=== PATIENT | female | born 1950 | race Caucasian/White ===

== ENCOUNTER 2020-08-31 10:01 | Outpatient (CLI) | payer MEDICARE | END 2020-08-31 23:59 | disposition home or self-care (01) | LOC: WOUND 10:01 | PROVIDERS: ATTEND Internal Medicine | DX: T22.322A Burn of third degree of left elbow, initial encounter (principal); T23.302A Burn of third degree of left hand, unspecified site, initial encounter; T23.332A Burn of third degree of multiple left fingers (nail), not including thumb, initial encounter; T23.331A Burn of third degree of multiple right fingers (nail), not including thumb, initial encounter; T23.301A Burn of third degree of right hand, unspecified site, initial encounter; T31.0 Burns involving less than 10% of body surface; T22.231A Burn of second degree of right upper arm, initial encounter; T22.212A Burn of second degree of left forearm, initial encounter; E66.01 Morbid (severe) obesity due to excess calories; I10 Essential (primary) hypertension; M79.7 Fibromyalgia; M19.90 Unspecified osteoarthritis, unspecified site; F41.9 Anxiety disorder, unspecified; F31.9 Bipolar disorder, unspecified; X08.8XXA Exposure to other specified smoke, fire and flames, initial encounter; Y93.89 Activity, other specified; Y92.89 Other specified places as the place of occurrence of the external cause; Y99.8 Other external cause status | CPT/HCPCS: 16020; 97597 ==

== ENCOUNTER 2020-09-07 10:01 | Outpatient (CLI) | payer MEDICARE | END 2020-09-07 23:59 | disposition home or self-care (01) | LOC: WOUND 10:01 | PROVIDERS: ATTEND Internal Medicine Cardiovascular Disease | DX: T22.322 Burn of third degree of left elbow (principal); T23.302D Burn of third degree of left hand, unspecified site, subsequent encounter; T23.332D Burn of third degree of multiple left fingers (nail), not including thumb, subsequent encounter; T23.331D Burn of third degree of multiple right fingers (nail), not including thumb, subsequent encounter; T23.301D Burn of third degree of right hand, unspecified site, subsequent encounter; T31.0 Burns involving less than 10% of body surface; T22.231D Burn of second degree of right upper arm, subsequent encounter; T22.212D Burn of second degree of left forearm, subsequent encounter; E66.01 Morbid (severe) obesity due to excess calories; I10 Essential (primary) hypertension; M79.7 Fibromyalgia; M19.90 Unspecified osteoarthritis, unspecified site; F41.9 Anxiety disorder, unspecified; F31.9 Bipolar disorder, unspecified; X08.8XXD Exposure to other specified smoke, fire and flames, subsequent encounter | CPT/HCPCS: G0463 ==

== ENCOUNTER → 2020-09-17 | Outpatient (CLI) | payer MEDICARE | END | disposition home or self-care (01) | LOC: WOUND 09:52 | PROVIDERS: ATTEND Internal Medicine | DX: T22.322 Burn of third degree of left elbow (principal); T23.302D Burn of third degree of left hand, unspecified site, subsequent encounter; T23.332D Burn of third degree of multiple left fingers (nail), not including thumb, subsequent encounter; T23.331D Burn of third degree of multiple right fingers (nail), not including thumb, subsequent encounter; T23.301D Burn of third degree of right hand, unspecified site, subsequent encounter; T22.231D Burn of second degree of right upper arm, subsequent encounter; T22.212D Burn of second degree of left forearm, subsequent encounter; T31.0 Burns involving less than 10% of body surface; E11.628 Type 2 diabetes mellitus with other skin complications; I10 Essential (primary) hypertension; M79.7 Fibromyalgia; M19.90 Unspecified osteoarthritis, unspecified site; F41.9 Anxiety disorder, unspecified; F31.9 Bipolar disorder, unspecified; E66.01 Morbid (severe) obesity due to excess calories; Z68.26 Body mass index [BMI] 26.0-26.9, adult; X08.8XXD Exposure to other specified smoke, fire and flames, subsequent encounter | CPT/HCPCS: 16020; 97597 ==

== ENCOUNTER 2020-09-24 10:01 | Outpatient (CLI) | payer MEDICARE | END 2020-09-24 23:59 | disposition home or self-care (01) | LOC: WOUND 10:01 | PROVIDERS: ATTEND Internal Medicine | DX: T22.322 Burn of third degree of left elbow (principal); T23.302D Burn of third degree of left hand, unspecified site, subsequent encounter; T23.332D Burn of third degree of multiple left fingers (nail), not including thumb, subsequent encounter; T23.331D Burn of third degree of multiple right fingers (nail), not including thumb, subsequent encounter; T23.301D Burn of third degree of right hand, unspecified site, subsequent encounter; T22.231D Burn of second degree of right upper arm, subsequent encounter; T22.212D Burn of second degree of left forearm, subsequent encounter; T31.0 Burns involving less than 10% of body surface; E11.628 Type 2 diabetes mellitus with other skin complications; I10 Essential (primary) hypertension; M79.7 Fibromyalgia; M19.90 Unspecified osteoarthritis, unspecified site; F41.9 Anxiety disorder, unspecified; F31.9 Bipolar disorder, unspecified; E66.01 Morbid (severe) obesity due to excess calories; Z68.26 Body mass index [BMI] 26.0-26.9, adult; X08.8XXD Exposure to other specified smoke, fire and flames, subsequent encounter | CPT/HCPCS: 16020; 97597 ==

== ENCOUNTER 2020-10-01 10:07 | Outpatient (CLI) | payer MEDICARE | END 2020-10-01 23:59 | disposition home or self-care (01) | LOC: WOUND 10:07 | PROVIDERS: ATTEND Internal Medicine | DX: T23.322D Burn of third degree of single left finger (nail) except thumb, subsequent encounter (principal); T23.322A Burn of third degree of single left finger (nail) except thumb, initial encounter; T22.231D Burn of second degree of right upper arm, subsequent encounter; T22.212D Burn of second degree of left forearm, subsequent encounter; T31.0 Burns involving less than 10% of body surface; E11.628 Type 2 diabetes mellitus with other skin complications; I10 Essential (primary) hypertension; M79.7 Fibromyalgia; M19.90 Unspecified osteoarthritis, unspecified site; F41.9 Anxiety disorder, unspecified; F31.9 Bipolar disorder, unspecified; E78.2 Mixed hyperlipidemia; E66.01 Morbid (severe) obesity due to excess calories; Z68.26 Body mass index [BMI] 26.0-26.9, adult; X08.8XXA Exposure to other specified smoke, fire and flames, initial encounter; X08.8XXD Exposure to other specified smoke, fire and flames, subsequent encounter; Y93.89 Activity, other specified; Y92.89 Other specified places as the place of occurrence of the external cause; Y99.8 Other external cause status | CPT/HCPCS: 16020; 97597 ==

== ENCOUNTER 2020-10-15 10:50 | Outpatient (CLI) | payer MEDICARE | END 2020-10-15 23:59 | disposition home or self-care (01) | LOC: WOUND 10:50 | PROVIDERS: ATTEND Internal Medicine | DX: T23.332D Burn of third degree of multiple left fingers (nail), not including thumb, subsequent encounter (principal); T22.231D Burn of second degree of right upper arm, subsequent encounter; T22.212D Burn of second degree of left forearm, subsequent encounter; T31.0 Burns involving less than 10% of body surface; E11.628 Type 2 diabetes mellitus with other skin complications; I10 Essential (primary) hypertension; M79.7 Fibromyalgia; M19.90 Unspecified osteoarthritis, unspecified site; F41.9 Anxiety disorder, unspecified; F31.9 Bipolar disorder, unspecified; E78.2 Mixed hyperlipidemia; E66.01 Morbid (severe) obesity due to excess calories; Z68.26 Body mass index [BMI] 26.0-26.9, adult; Z88.0 Allergy status to penicillin; Z88.2 Allergy status to sulfonamides; X08.8XXD Exposure to other specified smoke, fire and flames, subsequent encounter | CPT/HCPCS: 16020; 97597 ==

== ENCOUNTER 2021-03-30 04:32 | Emergency (ER) | payer MEDICARE ==
[~2021-03-30] VITALS: Ht 167.6 cm; Wt 72.0 kg
--- NOTE | 2021-03-30 07:20 | NUR ---
Second set of vitals charted at this time.
--- NOTE | 2021-03-30 07:50 | NUR ---
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
[2021-03-30 08:37] LABS: ALANINE AMINOTRANSFERASE 19 U/L (12-78); ALBUMIN 3.8 g/dL (3.4-5.0); ANION GAP 11 mmol/L (5-15); CHLORIDE 99 mmol/L (98-107); CREATININE 1.21 mg/dL (0.55-1.02)
[2021-03-30 08:39] LABS: ALKALINE PHOSPHATASE 138 U/L (45-117); BILIRUBIN,TOTAL 1.3 mg/dL (0.2-1.0); TOTAL PROTEIN 7.8 g/dL (6.4-8.2)
[2021-03-30 08:46] LABS: BASOPHILS % (AUTO) 1 % (0-1); EOSINOPHILS % (AUTO) 1 % (1-7); LYMPHOCYTES % (AUTO) 21 % (22-44); MEAN CORPUSCULAR HEMOGLOBIN 31.3 pg (27.0-34.8); MEAN CORPUSCULAR HGB CONC 34.2 g/dL (32.4-35.8); MEAN PLATELET VOLUME 7.1 fL (7.4-10.4); MONOCYTES % (AUTO) 8 % (2-9); NEUTROPHILS % (AUTO) 70 % (42-75); PLATELET COUNT 312 x10^3/uL (130-400); RED BLOOD COUNT 4.92 x10^6/uL (3.82-5.3)
--- NOTE | 2021-03-30 08:48 | NUR ---
pt presents to ED with c/o lesions covering bilateral arms, states she believes it is a bug or parasite. pt states "they weren't here before yesterday." pt is a&o, resps even and unlabored. bp and spo2 monitors in place .call light in reach. awaiting lab and imaging results.
--- NOTE | 2021-03-30 09:04 | NUR ---
POTASSIUM 2.9, FELT HAT MELLOWING MACHINE OPERATOR APPLIED. NSR ON FELT HAT MELLOWING MACHINE OPERATOR RATE 80'S WITH NO ECTOPY. MD NOTIFIED.
--- NOTE | 2021-03-30 09:09 | NUR ---
JESSICA ALONSO AT BEDSIDE FOR INITIAL ASSESSMENT.
[2021-03-30] MEDS ORDERED: POTASSIUM CHLORIDE 20 MEQ TAB.ER.PRT PO ONE (09:30)
[2021-03-30] MEDS ORDERED: POTASSIUM CHLORIDE 20 MEQ TAB.ER.PRT ONE (09:56)
--- NOTE | 2021-03-30 10:30 | NUR ---
PT SLEEPING ON GURNEY, RESPS EVEN AND UNLABORED, NADN. PT AWAITING PSYCH CONSULT AND DISPO.
--- NOTE | 2021-03-30 11:30 | NUR ---
PT SLEEPING ON GURNEY, RESPS EVEN AND UNLABORED, NADN. AWAITING PSYCH CONSULT AND DISPO.
--- NOTE | 2021-03-30 13:46 | NUR ---
request received from samantha steele to complete med rec. pt unable to recall meds, pt's pharmacy ([facility]) called [phone], call goes through but gets sent to [facility] when connecting to pharmacy staff. samantha steele notified
[2021-03-30] MEDS ORDERED: TRAZ-175 PO (14:03)
[2021-03-30] MEDS ORDERED: SIMV20TA19 PO (14:03)
[2021-03-30] MEDS ORDERED: HYDR50CA2 PO (14:03)
[2021-03-30] MEDS ORDERED: HYDR-3241 PO (14:03)
[2021-03-30] MEDS ORDERED: lisinopril PO (14:03)
[2021-03-30] MEDS ORDERED: FLUO20CA23 PO (14:03)
[2021-03-30] MEDS ORDERED: CYCL5TAB PO (14:03)
[2021-03-30] MEDS ORDERED: DEXT5TAB17 PO (14:03)
[2021-03-30] MEDS ORDERED: PROP20TA PO (14:03)
[2021-03-30] MEDS ORDERED: celebrex PO (14:03)
[2021-03-30] MEDS ORDERED: LAMO200T6 PO (14:03)
--- NOTE | 2021-03-30 14:45 | NUR ---
samantha steele at bedside to update pt and with poc. order for respiridal ordered, med not in ed [facility], requested from pharmacy. pt a&o, resps even and unlabored. wound care complete to bilateral arms, bandaging in place cdi. pt to be medicated then dc'd.
[2021-03-30] MEDS ORDERED: RISPERIDONE 0.5 MG TABLET PO ONE (15:00)
[2021-03-30 15:15] VITALS: BP 96/59
--- NOTE | 2021-03-30 15:42 | NUR ---
pt given diet tray, given dc instructions and script , educated regarding rx for risperidal and keflex. pt a&o, resps even and unlabored. pt ambulatory to dc desk with steady gait, all questions answered. with pt at dc.
== END 2021-03-30 15:43 | disposition home or self-care (01) ==
LOC: ED 09:29
DX: Z48.01 Encounter for change or removal of surgical wound dressing (principal); R06.02 Shortness of breath
CPT/HCPCS: 36415; 71046; 80053; 85025; 99285

== ENCOUNTER 2021-04-06 16:49 | Inpatient (IN) | payer MEDICARE ==
[~2021-04-06] VITALS: Ht 167.6 cm; Wt 75.2 kg
[~2021-04-06 16:49] MED LIST: CYCL5TAB PO; DEXT5TAB17 PO; FLUO20CA23 PO; HYDR-3241 PO; HYDR50CA2 PO; LAMO200T6 PO; PROP20TA PO; SIMV20TA19 PO; TRAZ-175 PO; celebrex PO; lisinopril PO
--- NOTE | 2021-04-06 17:15 | NUR ---
BP CUFF, PULSE OX IN PLACE. PT OBSERVED PICKING AT WOUNDS ON ARMS, STATES SHE HAS HAD WOUNDS FOR AWHILE AND HAS BEEN SEEN HERE PREVIOUSLY AND SENT HOME. EKG COMPLETED ON ARRIVAL, CALL LIGHT WITHIN REACH.
[2021-04-06] MEDS ORDERED: SODIUM CHLORIDE 0.9% 1,000ML IVBOLUS ONE (17:30)
[2021-04-06] MEDS ORDERED: SODIUM CHLORIDE FLUSH 10ML SYR IVF ONE (17:30)
[2021-04-06] MEDS ORDERED: CEFAZOLIN PMX 1GM/50ML 50 ML IV ONE (17:30)
[2021-04-06 18:00] LABS: BASOPHILS % (AUTO) 0 % (0-1); EOSINOPHILS % (AUTO) 0 % (1-7); LYMPHOCYTES % (AUTO) 8 % (22-44); MEAN CORPUSCULAR HEMOGLOBIN 30.7 pg (27.0-34.8); MEAN CORPUSCULAR HGB CONC 33.3 g/dL (32.4-35.8); MEAN PLATELET VOLUME 6.7 fL (7.4-10.4); MONOCYTES % (AUTO) 6 % (2-9); NEUTROPHILS % (AUTO) 85 % (42-75); PLATELET COUNT 293 x10^3/uL (130-400); RED BLOOD COUNT 4.38 x10^6/uL (3.82-5.3); RED CELL DISTRIBUTION WIDTH 13.8 % (9.6-15.2)
[2021-04-06 18:06] LABS: ALANINE AMINOTRANSFERASE 16 U/L (12-78); ALBUMIN 2.8 g/dL (3.4-5.0); ANION GAP 10 mmol/L (5-15); CALCIUM 9.3 mg/dL (8.5-10.1); CHLORIDE 103 mmol/L (98-107); CREATININE 0.92 mg/dL (0.55-1.02)
[2021-04-06 18:15] LABS: ALKALINE PHOSPHATASE 121 U/L (45-117); BILIRUBIN,TOTAL 0.6 mg/dL (0.2-1.0); TOTAL PROTEIN 6.8 g/dL (6.4-8.2)
--- NOTE | 2021-04-06 18:49 | NUR ---
REPORT RECIEVED FROM TYLER TREJO
[2021-04-06] MEDS ORDERED: CEFAZOLIN PMX 1GM/50ML 50 ML ONE (18:51)
[2021-04-06] MEDS ORDERED: LACTATED RINGERS 1,000 ML IV ONE (19:00)
--- NOTE | 2021-04-06 19:10 | NUR ---
REPORT TO JADON RN, TRANSFER OF CARE AT THIS TIME.
[2021-04-06] MEDS ORDERED: LABETALOL 5MG/ML, 20ML IVPush PRN (20:00)
[2021-04-06] MEDS ORDERED: POLYETHYLENE GLYCOL 17 GM PACKET PO PRN (20:00)
[2021-04-06] MEDS ORDERED: ONDANSETRON 2MG/ML, 2ML IVPush PRN (20:00)
[2021-04-06 21:40] VITALS: BP 92/61
[2021-04-06 21:41] VITALS: BP 104/61
[2021-04-06 21:42] VITALS: BP 96/58
[2021-04-06] MEDS ORDERED: GABA600T7 PO (22:07)
[2021-04-06] MEDS: LACTATED RINGERS 1,000 ML IV SCH (23:34)
[2021-04-06] MEDS: ENOXAPARIN 40 MG/0.4 ML SQ SCH (23:34)
[2021-04-06] MEDS: ACETAMINOPHEN 325 MG TABLET PO PRN (23:35)
[2021-04-07 00:23] VITALS: BP 102/71
[2021-04-07] MEDS ORDERED: CEFAZOLIN 1,000 MG IM SCH (02:00)
[2021-04-07 03:06] LABS: MICROSCOPIC AUTO
[2021-04-07 05:14] LABS: BASOPHILS % (AUTO) 1 % (0-1); EOSINOPHILS % (AUTO) 2 % (1-7); LYMPHOCYTES % (AUTO) 27 % (22-44); MEAN CORPUSCULAR HEMOGLOBIN 31.1 pg (27.0-34.8); MEAN CORPUSCULAR HGB CONC 33.9 g/dL (32.4-35.8); MEAN PLATELET VOLUME 6.6 fL (7.4-10.4); MONOCYTES % (AUTO) 10 % (2-9); NEUTROPHILS % (AUTO) 61 % (42-75); PLATELET COUNT 263 x10^3/uL (130-400); RED BLOOD COUNT 3.65 x10^6/uL (3.82-5.3); RED CELL DISTRIBUTION WIDTH 13.6 % (9.6-15.2)
[2021-04-07 05:16] LABS: ANION GAP 6 mmol/L (5-15); CALCIUM 8.7 mg/dL (8.5-10.1); CHLORIDE 110 mmol/L (98-107); CREATININE 0.86 mg/dL (0.55-1.02)
[2021-04-07] MEDS: LACTATED RINGERS 1,000 ML IV SCH ×3 (06:24→16:11)
[2021-04-07 07:07] VITALS: BP 92/59
[2021-04-07] MEDS ORDERED: CEFAZOLIN 2,000 MG in SODIUM CHLORIDE 0.9% 50 ML IV SCH (08:30)
[2021-04-07] MEDS: HYDROcodone/APAP 5/325 TABLET PO PRN ×3 (09:32→18:04)
[2021-04-07] MEDS: CEFTRIAXONE 1,000 MG in DEXTROSE 5% 50 ML IVPB SCH (09:32)
[2021-04-07 14:30] VITALS: BP 117/74
[2021-04-07 14:32] VITALS: BP 128/79
[2021-04-07 14:34] VITALS: BP 137/82
[2021-04-07 19:10] VITALS: BP 102/67
[2021-04-07] MEDS: ENOXAPARIN 40 MG/0.4 ML SQ SCH (22:00)
[2021-04-08 00:37] VITALS: BP 110/68
[2021-04-08] MEDS: HYDROcodone/APAP 5/325 TABLET PO PRN ×3 (02:02→18:00)
[2021-04-08 06:30] LABS: BASOPHILS % (AUTO) 1 % (0-1); EOSINOPHILS % (AUTO) 2 % (1-7); LYMPHOCYTES % (AUTO) 27 % (22-44); MEAN CORPUSCULAR HEMOGLOBIN 31.4 pg (27.0-34.8); MEAN CORPUSCULAR HGB CONC 33.9 g/dL (32.4-35.8); MEAN PLATELET VOLUME 6.8 fL (7.4-10.4); MONOCYTES % (AUTO) 9 % (2-9); NEUTROPHILS % (AUTO) 62 % (42-75); PLATELET COUNT 187 x10^3/uL (130-400); RED BLOOD COUNT 3.74 x10^6/uL (3.82-5.3); RED CELL DISTRIBUTION WIDTH 13.7 % (9.6-15.2)
[2021-04-08 06:34] VITALS: BP 109/73
[2021-04-08 06:43] LABS: ANION GAP 7 mmol/L (5-15); CALCIUM 9.2 mg/dL (8.5-10.1); CHLORIDE 110 mmol/L (98-107); CREATININE 0.58 mg/dL (0.55-1.02)
[2021-04-08] MEDS: CEFTRIAXONE 1,000 MG in DEXTROSE 5% 50 ML IVPB SCH (10:34)
[2021-04-08 12:17] VITALS: BP 123/82
[2021-04-08] MEDS: RIVAROXABAN 15 MG TABLET PO SCH (18:00)
[2021-04-08] MEDS: hydrOXyzine 10 MG/5 ML ORAL SOL PO PRN (18:01)
[2021-04-08 18:59] VITALS: BP 113/70
[2021-04-08] MEDS ORDERED: TRAZODONE 100MG TABLET PO PRN (21:00)
[2021-04-08] MEDS: RISPERIDONE 0.5 MG TABLET PO SCH (21:17)
[2021-04-08] MEDS: MELATONIN 5 MG TABLET PO PRN (21:18)
[2021-04-09 02:32] VITALS: BP 130/83
[2021-04-09] MEDS: RIVAROXABAN 15 MG TABLET PO SCH ×2 (08:10→18:10)
[2021-04-09] MEDS: CEFTRIAXONE 1,000 MG in DEXTROSE 5% 50 ML IVPB SCH (08:12)
[2021-04-09] MEDS: FLUOXETINE HCL 20 MG CAPSULE PO SCH (08:12)
[2021-04-09] MEDS: RISPERIDONE 0.5 MG TABLET PO SCH ×2 (08:12→22:01)
[2021-04-09] MEDS: HYDROcodone/APAP 5/325 TABLET PO PRN ×2 (11:01→18:10)
[2021-04-09 14:00] VITALS: BP 117/71
[2021-04-09] MEDS: ACETAMINOPHEN 325 MG TABLET PO PRN (15:29)
[2021-04-09 18:39] VITALS: BP 123/80
[2021-04-09] MEDS: CEFDINIR 300 MG CAPSULE PO SCH (22:01)
[2021-04-10 02:59] VITALS: BP 110/67
[2021-04-10 05:07] VITALS: BP 124/83
[2021-04-10] MEDS ORDERED: HALOPERIDOL 5 MG/ML IM ONE (06:00)
[2021-04-10 07:46] VITALS: BP 142/89
[2021-04-10 09:15] LABS: ANION GAP 11 mmol/L (5-15); CALCIUM 9.2 mg/dL (8.5-10.1); CHLORIDE 107 mmol/L (98-107)
[2021-04-10] MEDS: CEFDINIR 300 MG CAPSULE PO SCH ×2 (10:51→21:48)
[2021-04-10] MEDS: FLUOXETINE HCL 20 MG CAPSULE PO SCH (10:51)
[2021-04-10] MEDS: RISPERIDONE 0.5 MG TABLET PO SCH ×2 (10:51→21:48)
[2021-04-10] MEDS: RIVAROXABAN 15 MG TABLET PO SCH ×2 (10:51→17:45)
[2021-04-10 12:54] VITALS: BP 142/79
[2021-04-10] MEDS: hydrOXyzine 10 MG/5 ML ORAL SOL PO PRN (17:45)
[2021-04-10 18:58] VITALS: BP 136/81
[2021-04-10] MEDS ORDERED: HYDROXYZINE PAMOATE 50MG CAP PO PRN (19:30)
[2021-04-10] MEDS ORDERED: TRAZODONE 100MG TABLET PO SCH (21:00)
[2021-04-10] MEDS: GABAPENTIN 300 MG CAPSULE PO SCH (21:48)
[2021-04-10] MEDS: MELATONIN 5 MG TABLET PO PRN (21:49)
[2021-04-11 02:20] VITALS: BP 129/74
[2021-04-11 06:37] VITALS: BP 122/78
[2021-04-11 07:45] LABS: BASOPHILS % (AUTO) 0 % (0-1); EOSINOPHILS % (AUTO) 2 % (1-7); LYMPHOCYTES % (AUTO) 19 % (22-44); MEAN CORPUSCULAR HEMOGLOBIN 31.7 pg (27.0-34.8); MEAN PLATELET VOLUME 6.7 fL (7.4-10.4); MONOCYTES % (AUTO) 10 % (2-9); NEUTROPHILS % (AUTO) 70 % (42-75); PLATELET COUNT 196 x10^3/uL (130-400); RED BLOOD COUNT 3.78 x10^6/uL (3.82-5.3); RED CELL DISTRIBUTION WIDTH 13.6 % (9.6-15.2)
[2021-04-11 07:49] LABS: ANION GAP 7 mmol/L (5-15); CHLORIDE 108 mmol/L (98-107)
[2021-04-11 07:52] LABS: CREATININE 0.52 mg/dL (0.55-1.02)
[2021-04-11] MEDS: CEFDINIR 300 MG CAPSULE PO SCH (08:22)
[2021-04-11] MEDS: FLUOXETINE HCL 20 MG CAPSULE PO SCH (08:22)
[2021-04-11] MEDS: RISPERIDONE 0.5 MG TABLET PO SCH (08:22)
[2021-04-11] MEDS: GABAPENTIN 300 MG CAPSULE PO SCH ×2 (08:22→16:57)
[2021-04-11] MEDS: RIVAROXABAN 15 MG TABLET PO SCH ×2 (08:22→16:57)
[2021-04-11] MEDS ORDERED: MAGNESIUM SULFATE 4 GM in SODIUM CHLORIDE 0.9% 100 ML IV ONE (09:00)
[2021-04-11 12:41] VITALS: BP 99/68
[2021-04-11 13:40] LABS: ANION GAP 11 mmol/L (5-15); CALCIUM 9.9 mg/dL (8.5-10.1); CHLORIDE 105 mmol/L (98-107); CREATININE 0.76 mg/dL (0.55-1.02)
[2021-04-11 14:14] VITALS: BP 121/81
[2021-04-11] MEDS: HYDROcodone/APAP 5/325 TABLET PO PRN (14:15)
[2021-04-11] MEDS ORDERED: TRAZ-175 PO (16:03)
[2021-04-11] MEDS ORDERED: RIVA15TA PO (16:03)
[2021-04-11] MEDS ORDERED: RISP0.5T62 PO (16:03)
[2021-04-11] MEDS ORDERED: CEFD300C37 PO (16:03)
[2021-04-11] MEDS ORDERED: RIVA20TA PO (16:03)
[2021-04-11] MEDS ORDERED: APIX5TAB PO (16:18)
[2021-04-30] MEDS ORDERED: RIVAROXABAN 20 MG TABLET PO SCH (17:00)
== END 2021-04-11 18:42 | disposition home health service (06) | DRG 871 ==
LOC: ED 17:15 → EDIP 20:54 → 4EST 21:15 → 4WST 23:45
PROVIDERS: ADMIT Internal Medicine; ATTEND Internal Medicine
DX: A41.9 Sepsis, unspecified organism (principal); J18.9 Pneumonia, unspecified organism; G93.41 Metabolic encephalopathy; L03.114 Cellulitis of left upper limb; E87.1 Hypo-osmolality and hyponatremia; L03.113 Cellulitis of right upper limb; J98.11 Atelectasis; I82.439 Acute embolism and thrombosis of unspecified popliteal vein; I82.411 Acute embolism and thrombosis of right femoral vein; I95.9 Hypotension, unspecified; M79.7 Fibromyalgia; L29.9 Pruritus, unspecified; G30.9 Alzheimer's disease, unspecified; F42.4 Excoriation (skin-picking) disorder; F41.9 Anxiety disorder, unspecified; F32.9 Major depressive disorder, single episode, unspecified; F19.10 Other psychoactive substance abuse, uncomplicated; F02.80 Dementia in other diseases classified elsewhere, unspecified severity, without behavioral disturbance, psychotic disturbance, mood disturbance, and anxiety; E87.6 Hypokalemia; D63.8 Anemia in other chronic diseases classified elsewhere; E11.9 Type 2 diabetes mellitus without complications; E83.42 Hypomagnesemia; G40.909 Epilepsy, unspecified, not intractable, without status epilepticus; I10 Essential (primary) hypertension; Z98.84 Bariatric surgery status; Z91.410 Personal history of adult physical and sexual abuse; Z86.718 Personal history of other venous thrombosis and embolism; Z78.1 Physical restraint status; Z82.3 Family history of stroke
CPT/HCPCS: 36415; 71045; 80048; 80053; 81001; 82962; 83036; 83605; 83735; 84100; 84443; 85025; 87040; 87070; 87086; 87205; 93005; 99285; G0378; J0690; J0696; J1650; J2405; J3475; J1630; J7030; J7120; Q0177

== ENCOUNTER 2021-04-28 16:12 | Inpatient (IN) | payer MEDICARE ==
[~2021-04-28] VITALS: Ht 167.6 cm; Wt 82.5 kg
[~2021-04-28 16:12] MED LIST changes: +APIX5TAB PO; +CEFD300C37 PO; +GABA600T7 PO; +RISP0.5T62 PO; +RIVA15TA PO; +RIVA20TA PO
[2021-04-28 17:15] LABS: BASOPHILS % (AUTO) 1 % (0-1); EOSINOPHILS % (AUTO) 0 % (1-7); LYMPHOCYTES % (AUTO) 11 % (22-44); MEAN CORPUSCULAR HEMOGLOBIN 32.2 pg (27.0-34.8); MEAN CORPUSCULAR HGB CONC 34.3 g/dL (32.4-35.8); MEAN PLATELET VOLUME 7.3 fL (7.4-10.4); MONOCYTES % (AUTO) 8 % (2-9); NEUTROPHILS % (AUTO) 81 % (42-75); PLATELET COUNT 301 x10^3/uL (130-400); RED BLOOD COUNT 4.31 x10^6/uL (3.82-5.3)
--- NOTE | 2021-04-28 17:15 | NUR ---
ERMD AT BEDSIDE FOR ASSESSEMNT. PT A&OX4, ABLE TO ANSWER ALL QUESTIONS, MAINTAINING OWN AIRWAY WELL.
[2021-04-28 17:17] LABS: ALANINE AMINOTRANSFERASE 22 U/L (12-78); ALBUMIN 2.9 g/dL (3.4-5.0); ANION GAP 10 mmol/L (5-15); CALCIUM 9.2 mg/dL (8.5-10.1); CHLORIDE 97 mmol/L (98-107)
[2021-04-28 17:19] LABS: ALKALINE PHOSPHATASE 99 U/L (45-117); BILIRUBIN,TOTAL 0.8 mg/dL (0.2-1.0); CREATININE 1.05 mg/dL (0.55-1.02); SALICYLATE LEVEL 2.8 mg/dL (2.8-20.0); TOTAL PROTEIN 7.1 g/dL (6.4-8.2)
[2021-04-28 17:25] LABS: INTERNATIONAL NORMALIZED RATIO 1.54 (0.93-1.1); PROTHROMBIN TIME 16.1 Seconds (9.6-11.5)
--- NOTE | 2021-04-28 18:09 | NUR ---
PT UP TO RR, HAT PLACED IN TOILET FOR U/A, PT MISSED FOR U/A SAMPLE, ERMD AWARE. IV STARTED PER ORDERS, PT PLACED ON MONITORS. PT'S REMAINS AT BEDSIDE. WILL FOLLOW ORDERS.
--- NOTE | 2021-04-28 18:12 | NUR ---
PT TO CT.
--- NOTE | 2021-04-28 18:31 | NUR ---
PT UA COLLECTED, SENT TO LAB. PT REMAINS ON MONITORS, VSS. AT BEDSIDE, CONT TO MONITOR.
[2021-04-28 18:49] LABS: MICROSCOPIC INDICATED
[2021-04-28 18:59] LABS: AMPHETAMINE SCREEN, URINE Negative (Negative); BARBITURATE SCREEN, URINE Negative (Negative); BENZODIAZEPINE SCREEN, URINE Negative (Negative); CANNABINOID SCREEN, URINE Negative (Negative); COCAINE SCREEN, URINE Negative (Negative); METHADONE SCREEN, URINE Negative (Negative); OPIATE SCREEN, URINE Positive (Negative)
--- NOTE | 2021-04-28 19:02 | NUR ---
REPORT TO JONNIE TREJO.
--- NOTE | 2021-04-28 19:02 | NUR ---
Report received and care turned over to meal break RN.
--- NOTE | 2021-04-28 19:30 | NUR ---
BREAK RN. PT GIVEN WATER PER REQUEST
--- NOTE | 2021-04-28 19:35 | NUR ---
Care assumed. Pt awaiting social work consult.
--- NOTE | 2021-04-28 19:54 | NUR ---
Pt provided warm blankets. Awaiting MD to come speak with her about plan of care. States she feels fine and would like to go home. Also states that delinquency prevention social worker has been in already.
[2021-04-28] MEDS ORDERED: CEFTRIAXONE 1,000 MG in DEXTROSE 5% 50 ML IVPB ONE (20:00)
--- NOTE | 2021-04-28 20:03 | NUR ---
IV abx started at this time.
--- NOTE | 2021-04-28 20:47 | NUR ---
Pt aware of admission plan and has gone home. Small amount of IV abx still to infuse. ED diet tray to be ordered for pt c/o hunger now.
[2021-04-28] MEDS ORDERED: HYDROXYZINE PAMOATE 50MG CAP PO PRN (21:30)
[2021-04-28] MEDS ORDERED: ACETAMINOPHEN 325 MG TABLET PO PRN (21:30)
[2021-04-28] MEDS ORDERED: PROPRANOLOL 20 MG TABLET PO PRN (21:30)
[2021-04-28] MEDS ORDERED: POLYETHYLENE GLYCOL 17 GM PACKET PO PRN (21:30)
--- NOTE | 2021-04-28 21:55 | NUR ---
Pt assisted to BSC with sandwich obtained from [employer] cart for pt. Call light in reach for when she is done using the restroom.
[2021-04-28 21:59] LABS: ANION GAP 11 mmol/L (5-15); CALCIUM 9.4 mg/dL (8.5-10.1); CHLORIDE 97 mmol/L (98-107); CREATININE 0.86 mg/dL (0.55-1.02)
--- NOTE | 2021-04-28 22:06 | NUR ---
Report given to Paolo, RN's and care transferred. They are aware of pt still being on BSC and need for assistance back to bed with food at bedside for when she is done.
--- NOTE | 2021-04-28 22:22 | NUR ---
Report to Calixto TREJO
[2021-04-28 22:33] VITALS: BP 148/78
[2021-04-28] MEDS: TRAZODONE 100MG TABLET PO SCH (23:41)
[2021-04-28] MEDS: LAMOTRIGINE 200 MG TABLET PO SCH (23:41)
[2021-04-28] MEDS: RISPERIDONE 0.5 MG TABLET PO SCH (23:41)
[2021-04-28] MEDS: SIMVASTATIN 20 MG TABLET PO SCH (23:41)
[2021-04-29 02:20] VITALS: BP 94/60
[2021-04-29] MEDS ORDERED: POTASSIUM CHLORIDE 20 MEQ TAB.ER.PRT PO ONE (02:30)
[2021-04-29 06:37] LABS: CHLORIDE 100 mmol/L (98-107)
[2021-04-29 06:45] LABS: BASOPHILS % (AUTO) 1 % (0-1); EOSINOPHILS % (AUTO) 1 % (1-7); LYMPHOCYTES % (AUTO) 24 % (22-44); MEAN CORPUSCULAR HEMOGLOBIN 32.1 pg (27.0-34.8); MEAN CORPUSCULAR HGB CONC 34.2 g/dL (32.4-35.8); MEAN PLATELET VOLUME 7.7 fL (7.4-10.4); MONOCYTES % (AUTO) 11 % (2-9); NEUTROPHILS % (AUTO) 62 % (42-75); PLATELET COUNT 263 x10^3/uL (130-400); RED BLOOD COUNT 4.55 x10^6/uL (3.82-5.3); RED CELL DISTRIBUTION WIDTH 14.2 % (9.6-15.2)
[2021-04-29 06:46] LABS: ANION GAP 12 mmol/L (5-15); CALCIUM 9.8 mg/dL (8.5-10.1); CREATININE 1.01 mg/dL (0.55-1.02)
[2021-04-29] MEDS: SENNA/DOCUSATE TABLET PO SCH (09:00)
[2021-04-29 09:10] VITALS: BP 108/60
[2021-04-29] MEDS: GABAPENTIN 300 MG CAPSULE PO SCH ×3 (09:20→20:20)
[2021-04-29] MEDS: POTASSIUM CHLORIDE 20 MEQ TAB.ER.PRT PO SCH ×2 (09:21→15:50)
[2021-04-29] MEDS: RISPERIDONE 0.5 MG TABLET PO SCH ×2 (09:21→20:20)
[2021-04-29] MEDS: FLUOXETINE HCL 20 MG CAPSULE PO SCH (09:22)
[2021-04-29] MEDS: LAMOTRIGINE 200 MG TABLET PO SCH ×2 (09:22→20:20)
[2021-04-29] MEDS ORDERED: POTASSIUM CHLORIDE 40 MEQ in SODIUM CHLORIDE 0.9% 500 ML IV ONE (12:00)
[2021-04-29] MEDS: ONDANSETRON 2MG/ML, 2ML IVPush PRN (13:30)
[2021-04-29 14:11] VITALS: BP 93/46
[2021-04-29 18:57] VITALS: BP 87/59
[2021-04-29] MEDS: SIMVASTATIN 20 MG TABLET PO SCH (20:20)
[2021-04-29] MEDS: TRAZODONE 100MG TABLET PO SCH (20:20)
[2021-04-29] MEDS ORDERED: SODIUM CHLORIDE 0.9% 1,000ML IVBOLUS ONE (21:00)
[2021-04-29 23:32] VITALS: BP 78/42
[2021-04-30] MEDS: SODIUM CHLORIDE 0.9% 1,000 ML IV SCH ×4 (00:01→23:30)
[2021-04-30 00:43] VITALS: BP 82/54
[2021-04-30 01:40] VITALS: BP 81/53
[2021-04-30 03:10] LABS: ALANINE AMINOTRANSFERASE 12 U/L (12-78); ALBUMIN 2.1 g/dL (3.4-5.0); ANION GAP 5 mmol/L (5-15); CALCIUM 8.5 mg/dL (8.5-10.1); CHLORIDE 111 mmol/L (98-107); CREATININE 1.06 mg/dL (0.55-1.02)
[2021-04-30 03:12] LABS: ALKALINE PHOSPHATASE 67 U/L (45-117); BILIRUBIN,TOTAL 0.2 mg/dL (0.2-1.0)
[2021-04-30 06:04] VITALS: BP 78/43
[2021-04-30] MEDS ORDERED: ALBUMIN HUMAN 25% 100 ML IV ONE (08:00)
[2021-04-30 08:56] VITALS: BP 101/67
[2021-04-30] MEDS: SENNA/DOCUSATE TABLET PO SCH (09:00)
[2021-04-30] MEDS: MIDODRINE 5 MG TABLET PO SCH ×4 (10:03→20:45)
[2021-04-30] MEDS: RISPERIDONE 0.5 MG TABLET PO SCH ×2 (10:03→20:44)
[2021-04-30] MEDS: POTASSIUM CHLORIDE 20 MEQ TAB.ER.PRT PO SCH ×2 (10:03→16:50)
[2021-04-30] MEDS: FLUOXETINE HCL 20 MG CAPSULE PO SCH (10:03)
[2021-04-30] MEDS: GABAPENTIN 300 MG CAPSULE PO SCH ×4 (10:03→21:10)
[2021-04-30] MEDS: LAMOTRIGINE 200 MG TABLET PO SCH ×2 (10:13→20:44)
[2021-04-30] MEDS ORDERED: OMNIPAQUE 350 MG/ML, 100ML BOTTLE ONE (11:56)
[2021-04-30 14:00] VITALS: BP 105/68
[2021-04-30] MEDS ORDERED: CEFTRIAXONE 2 GM in DEXTROSE 5% 50 ML IVPB SCH (16:30)
[2021-04-30 16:43] LABS: BASOPHILS % (AUTO) 1 % (0-1); EOSINOPHILS % (AUTO) 1 % (1-7); LYMPHOCYTES % (AUTO) 16 % (22-44); MEAN CORPUSCULAR HEMOGLOBIN 32.1 pg (27.0-34.8); MEAN CORPUSCULAR HGB CONC 33.8 g/dL (32.4-35.8); MEAN PLATELET VOLUME 7.3 fL (7.4-10.4); MONOCYTES % (AUTO) 6 % (2-9); NEUTROPHILS % (AUTO) 76 % (42-75); PLATELET COUNT 236 x10^3/uL (130-400); RED BLOOD COUNT 3.35 x10^6/uL (3.82-5.3); RED CELL DISTRIBUTION WIDTH 14.1 % (9.6-15.2)
[2021-04-30 16:48] LABS: INTERNATIONAL NORMALIZED RATIO 1.08 (0.93-1.1); PROTHROMBIN TIME 11.5 Seconds (9.6-11.5)
[2021-04-30 20:00] VITALS: BP 114/53
[2021-04-30] MEDS: ONDANSETRON 2MG/ML, 2ML IVPush PRN (20:14)
[2021-04-30] MEDS: SIMVASTATIN 20 MG TABLET PO SCH (20:43)
[2021-04-30] MEDS: TRAZODONE 100MG TABLET PO SCH (21:10)
[2021-05-01 00:58] VITALS: BP 103/56
[2021-05-01 04:53] LABS: BASOPHILS % (AUTO) 1 % (0-1); EOSINOPHILS % (AUTO) 2 % (1-7); LYMPHOCYTES % (AUTO) 24 % (22-44); MEAN CORPUSCULAR HEMOGLOBIN 31.6 pg (27.0-34.8); MEAN PLATELET VOLUME 7.1 fL (7.4-10.4); MONOCYTES % (AUTO) 7 % (2-9); NEUTROPHILS % (AUTO) 66 % (42-75); PLATELET COUNT 218 x10^3/uL (130-400); RED BLOOD COUNT 3.43 x10^6/uL (3.82-5.3)
[2021-05-01 04:55] LABS: ALANINE AMINOTRANSFERASE 14 U/L (12-78); ALBUMIN 2.6 g/dL (3.4-5.0); ANION GAP 4 mmol/L (5-15); CALCIUM 8.8 mg/dL (8.5-10.1); CHLORIDE 115 mmol/L (98-107)
[2021-05-01 04:58] LABS: ALKALINE PHOSPHATASE 66 U/L (45-117); BILIRUBIN,TOTAL 0.2 mg/dL (0.2-1.0); TOTAL PROTEIN 5.5 g/dL (6.4-8.2)
[2021-05-01] MEDS: SODIUM CHLORIDE 0.9% 1,000 ML IV SCH ×2 (05:08→12:09)
[2021-05-01 05:09] VITALS: BP 112/60
[2021-05-01 09:26] VITALS: BP 101/66
[2021-05-01] MEDS: SENNA/DOCUSATE TABLET PO SCH (09:34)
[2021-05-01] MEDS: RISPERIDONE 0.5 MG TABLET PO SCH ×2 (09:34→21:37)
[2021-05-01] MEDS: LAMOTRIGINE 200 MG TABLET PO SCH ×2 (09:34→21:37)
[2021-05-01] MEDS: FLUOXETINE HCL 20 MG CAPSULE PO SCH (09:34)
[2021-05-01] MEDS: MIDODRINE 5 MG TABLET PO SCH ×3 (09:34→21:37)
[2021-05-01] MEDS: GABAPENTIN 300 MG CAPSULE PO SCH ×3 (09:34→21:37)
[2021-05-01] MEDS ORDERED: SODIUM CHLORIDE 0.9% 1,000 ML IV SCH (12:00)
[2021-05-01 13:02] VITALS: BP 100/66
[2021-05-01 13:13] VITALS: BP 108/89
[2021-05-01 19:50] VITALS: BP 127/71
[2021-05-01] MEDS ORDERED: HYDROcodone/APAP 5/325 TABLET ONE (20:56)
[2021-05-01] MEDS: SIMVASTATIN 20 MG TABLET PO SCH (21:37)
[2021-05-01] MEDS: TRAZODONE 100MG TABLET PO SCH (21:41)
[2021-05-02 01:37] VITALS: BP 111/74
[2021-05-02] MEDS: SODIUM CHLORIDE 0.9% 1,000 ML IV SCH (03:52)
[2021-05-02 06:40] VITALS: BP 120/71
[2021-05-02] MEDS: SENNA/DOCUSATE TABLET PO SCH (09:00)
[2021-05-02] MEDS ORDERED: MAGNESIUM SULFATE PMX 4GM/100M 100 ML IVPB ONE (09:00)
[2021-05-02] MEDS ORDERED: MIDODRINE 5 MG TABLET PO SCH (09:00)
[2021-05-02] MEDS: LAMOTRIGINE 200 MG TABLET PO SCH (09:19)
[2021-05-02] MEDS: FLUOXETINE HCL 20 MG CAPSULE PO SCH (09:20)
[2021-05-02] MEDS: RISPERIDONE 0.5 MG TABLET PO SCH (09:20)
[2021-05-02] MEDS: GABAPENTIN 300 MG CAPSULE PO SCH (09:20)
== END 2021-05-02 13:35 | disposition home health service (06) | DRG 917 ==
LOC: ED 17:31 → EDIP 20:35 → INTOOBSV 20:35 → 3N 22:30 → OBSVTOIN 04-29 11:29 → 4WST 04-30 02:53
PROVIDERS: ADMIT Internal Medicine; ATTEND Internal Medicine
DX: T45.511A Poisoning by anticoagulants, accidental (unintentional), initial encounter (principal); G93.41 Metabolic encephalopathy; K56.699 Other intestinal obstruction unspecified as to partial versus complete obstruction; F31.9 Bipolar disorder, unspecified; E66.9 Obesity, unspecified; E11.65 Type 2 diabetes mellitus with hyperglycemia; E83.42 Hypomagnesemia; E87.6 Hypokalemia; W18.39XA Other fall on same level, initial encounter; S09.90XA Unspecified injury of head, initial encounter; T50.991A Poisoning by other drugs, medicaments and biological substances, accidental (unintentional), initial encounter; R79.1 Abnormal coagulation profile; Z86.718 Personal history of other venous thrombosis and embolism; Y93.89 Activity, other specified; Y92.89 Other specified places as the place of occurrence of the external cause; Y99.8 Other external cause status; Z68.29 Body mass index [BMI] 29.0-29.9, adult; Z88.0 Allergy status to penicillin; Z88.2 Allergy status to sulfonamides
CPT/HCPCS: 36415; 70450; 74018; 74177; 80048; 80053; 80299; 80307; 80320; 80329; 81001; 82962; 83605; 83735; 85014; 85018; 85025; 85610; 85730; 87040; 87086; 93005; 96365; 96375; G0378; J0696; J2405; J3480; P9047; Q9967; G0480; J3475; J7030; J7040